=== PATIENT | male | born 1980 | race American Indian/Alaskan Native ===

== ENCOUNTER 2017-01-30 20:31 | Emergency (ER) | payer SELFPAY ==
[2017-01-30 21:23] VITALS: BP 163/107
[2017-01-30 21:44] LABS: Basophils % (Auto) 0.3 % (0.0-1.8); Eosinophils % (Auto) 1.9 % (0.0-4.3); Hematocrit 46.7 % (35.5-45.6); Hemoglobin 15.4 gm/dl (11.8-15.2); Mean Corpuscular HGB Conc 33 % (32-34); Mean Corpuscular Hemoglobin 28 pg (28-32); Mean Corpuscular Volume 85 fl (84-94); Platelet Count 119 K/mm3 (140-440); Red Blood Count 5.51 M/mm3 (3.65-5.03); Red Cell Distribution Width 14.4 % (13.2-15.2); White Blood Count 6.8 K/mm3 (4.5-11.0)
[2017-01-30 21:55] LABS: INR 0.99 (0.87-1.13)
[2017-01-30 21:56] LABS: Partial Thromboplastin Time 29.5 Sec. (24.2-36.6)
--- NOTE | 2017-01-30 22:00 | Cat Scan Report ---
FINAL REPORT PROCEDURE: CT HEAD/BRAIN WO CON TECHNIQUE: Computerized tomography of the head was performed without contrast material. HISTORY: HTN, Dizzy, Blurred vision, Headache COMPARISON: 08/20/2015 FINDINGS: No CT evidence of intracranial mass, hemorrhage, acute territorial infarction, or hydrocephalus. The intracranial arteries are symmetric in density. Calvarium is intact. Mastoids are aerated. IMPRESSION: No CT evidence of acute abnormality
[2017-01-30 22:04] LABS: Anion Gap 16 mmol/L; BUN/Creatinine Ratio 7.77; Blood Urea Nitrogen 7 mg/dL (9-20); Calcium 8.9 mg/dL (8.4-10.2); Carbon Dioxide 27 mmol/L (22-30); Chloride 106.5 mmol/L (98-107); Glucose 85 mg/dL (75-100); Potassium 3.9 mmol/L (3.6-5.0); Sodium 146 mmol/L (137-145)
--- NOTE | 2017-01-31 07:18 | XRay Report ---
CHEST 2 VIEWS INDICATION: Shortness of breath. COMPARISON: 08/20/2015. FINDINGS: PA and lateral chest radiographs again demonstrate mild exaggerated cardiomediastinal silhouette and clear lungs. Intact bones. CONCLUSION: No acute disease in the chest, stable. Thank you for the opportunity to participate in this patient's care. Shortness of breath
--- NOTE | 2017-02-01 14:46 | ED Elopement Review ---
ED Pt Elopement review - Results review Lab results: Laboratory Tests 01/30/17 01/30/17 01/30/17 21:28 21:28 21:28 WBC 6.8 RBC 5.51 H Hgb 15.4 H Hct 46.7 H MCV 85 MCH 28 MCHC 33 RDW 14.4 Plt Count 119 L Lymph % (Auto) 23.2 Mills % (Auto) 6.2 Eos % (Auto) 1.9 Baso % (Auto) 0.3 Lymph # 1.6 Mills # 0.4 Eos # 0.1 Baso # 0.0 Seg Neutrophils % 68.4 Seg Neutrophils # 4.7 PT 13.6 INR 0.99 APTT 29.5 VBG pH Sodium 146 H Potassium 3.9 Chloride 106.5 Carbon Dioxide 27 Anion Gap 16 BUN 7 L Creatinine 0.9 Estimated GFR > 60 BUN/Creatinine Ratio 7.77 Glucose 85 Lactic Acid Calcium 8.9 Magnesium Troponin T < 0.010 C-Reactive Protein NT-Pro-B Natriuret Pep 01/30/17 01/30/17 01/30/17 21:28 21:28 21:28 WBC RBC Hgb Hct MCV MCH MCHC RDW Plt Count Lymph % (Auto) Mills % (Auto) Eos % (Auto) Baso % (Auto) Lymph # Mills # Eos # Baso # Seg Neutrophils % Seg Neutrophils # PT INR APTT VBG pH 7.322 Sodium Potassium Chloride Carbon Dioxide Anion Gap BUN Creatinine Estimated GFR BUN/Creatinine Ratio Glucose Lactic Acid 1.50 Calcium Magnesium 2.00 Troponin T C-Reactive Protein 0.10 NT-Pro-B Natriuret Pep < 5 - Call Back decision Pt Call Back Decision: Pt to F/U with PMD
== END 2017-01-31 | disposition left against medical advice (07) ==
LOC: ED 20:31
DX: R51 Headache (principal); R07.2 Precordial pain; R42 Dizziness and giddiness; Z53.21 Procedure and treatment not carried out due to patient leaving prior to being seen by health care provider
CPT/HCPCS: 36415; 70450; 71020; 80048; 82140; 82805; 83735; 83880; 84484; 85025; 85610; 85730; 86140; 93005; 93010